=== PATIENT | female | born 1995 ===

== ENCOUNTER 2022-03-20 15:36 | Emergency (ER) | payer SELFPAY ==
[2022-03-21] MEDS ORDERED: PEPCID20 MG PO (02:19)
[2022-03-21] MEDS ORDERED: BENADRYL 50MG C50 MG PO (02:19)
[2022-03-21] MEDS ORDERED: PREDNISONE 50 M50 MG PO (02:19)
== END 2022-03-20 20:45 | disposition left against medical advice (07) ==
LOC: ER1 15:36
DX: Z53.21 Procedure and treatment not carried out due to patient leaving prior to being seen by health care provider (principal)

== ENCOUNTER 2022-03-20 21:26 | Emergency (ER) | payer SELFPAY ==
[2022-03-21] MEDS ORDERED: PREDNISONE 50 M50 MG PO (02:19)
[2022-03-21] MEDS ORDERED: BENADRYL 50MG C50 MG PO (02:19)
[2022-03-21] MEDS ORDERED: PEPCID20 MG PO (02:19)
== END 2022-03-21 03:21 | disposition home or self-care (01) ==
LOC: ER1 21:26
DX: T78.1XXA Other adverse food reactions, not elsewhere classified, initial encounter (principal); L29.9 Pruritus, unspecified
CPT/HCPCS: 96372; 99282; J2930